=== PATIENT | male | born 1975 | race Caucasian/White ===

== ENCOUNTER 2021-07-13 19:42 | Emergency (ER) | payer SELFPAY ==
--- NOTE | 2021-07-13 19:45 | ED.SKABFB ---
HPI - Skin/Abscess/Foreign Bdy General Chief complaint: Skin/Abscess/Foreign Body Stated complaint: hives Source: patient and RN notes reviewed Mode of arrival: ambulatory Limitations: no limitations History of Present Illness HPI narrative: 46-year-old male presents with concern for hives, trouble breathing. Reports symptoms started 2 days ago after working his [employer]. He reports this is happened to him before after working in the [employer]. Reports it has not been this bad in the past. Reports he took Benadryl today with little relief. Reports the rash is itchy in nature on his arms, legs, torso and is hive-like. He reports the hives change in movement in nature. He reports yesterday he had swollen lips and felt difficulty swallowing. Reports that has improved. He denies nausea, vomiting, fever. MD complaint: rash Related Data Allergies Allergy/AdvReac Type Severity Reaction Status Date / Time No Known Allergies Allergy Verified 07/13/21 19:59 Review of Systems Review of Systems: CONSTITUTIONAL: Denies malaise, chills, sweats, or fever. EYES: Denies redness, or discharge. ENT: Denies rhinorrhea, congestion. Reports swollen lips, trouble swallowing yesterday CARDIOVASCULAR: Denies chest pain, palpitations, or edema. RESPIRATORY: Denies cough. Reports dyspnea. GASTROINTESTINAL: Denies abdominal pain, nausea, vomiting SKIN: Reports generalized hive-like rash MUSCULOSKELETAL: Denies joint pain or myalgia. NEUROLOGIC: Denies headache. All systems reviewed & are unremarkable except as noted in HPI and below PMFSH Comments At time of signature, agree with nursing past medical, surgical, social and family history. There is no relevant family history pertinent to the presenting complaint Exam Narrative: GENERAL: Nontoxic-appearing and in no acute distress. HEAD: Normocephalic, atraumatic. EYES: PERRLA, conjunctivae clear, and EOMI. ENT: Mucous membranes moist. Oropharynx without edema, erythema or lesions. NECK: Supple. No lymphadenopathy CHEST: Clear to auscultation. Tachypneic, otherwise no respiratory distress. HEART: Regular rate and rhythm. SKIN: Warm, dry. Urticarial rash noted to arms, legs, torso NEURO: Alert and oriented x3. PSYCH: Normal mood and affect Course Course Emergency Course: Patient is aware of, understands and agrees to seek care in the emergency department Patient agrees to proceed directly to the emergency department. Portions of this record may have been created with voice recognition software Level of Care: Express Care Visit Reevaluation(s) Reevaluation #1: Patient given Solu-Medrol, DuoNeb. Hives visibly improved, patient reports less itching. Denies dyspnea. Date: 07/13/21 Time: 20:35 Reevaluation #2: Discussed findings of EKG with patient, discussed need for transfer to emergency department. Patient is agreeable to go to the emergency department however he is not agreeable to transfer via EMS, encourage patient to use EMS transfer, patient still refuses. Date: 07/13/21 Time: 20:55 Vital Signs Vital signs: Vital Signs Temperature 97.2 F L 07/13/21 19:50 Pulse Rate 132 H 07/13/21 19:50 Respiratory Rate 32 H 07/13/21 19:50 Blood Pressure 150/61 H 07/13/21 19:50 Pulse Oximetry 97 07/13/21 19:50 Oxygen Delivery Room Air 07/13/21 19:50 Temperature 97.2 F L 07/13/21 19:59 Pulse Rate 125 H 07/13/21 20:16 Respiratory Rate 24 H 07/13/21 20:16 Blood Pressure 150/61 H 07/13/21 19:59 Pulse Oximetry 97 07/13/21 20:16 Oxygen Delivery Room Air 07/13/21 20:16 Reviewed. Transfer Transfered to: [facility]) Transportation: Other (Private vehicle, refused EMS transfer) Transfer rationale: Tachycardia, abnormal EKG Accepting physician: Folcort MDM - Skin/Abscess/Foreign Bdy MDM Narrative Medical decision making narrative: Patient's exam, EKG warrant further evaluation the emergency department ECG Data EKG #1: ECG completion d
[2021-07-13 19:50] VITALS: BP 150/61; PULSE 132; RESP 32; TEMP 36.2; O2SAT 97
[2021-07-13 19:59] VITALS: BP 150/61; PULSE 132; RESP 32; TEMP 36.2; O2SAT 97
[2021-07-13] MEDS: ALBUTEROL SULFATE NEB 2.5 MG/3 ML INH INHALATION (20:12)
[2021-07-13] MEDS: methylPREDNISolone SOD SUCC 125 MG VIAL IM (20:12)
[2021-07-13] MEDS: IPRATROPIUM BR 0.02% INH SOLN 0.5 MG/2.5 ML VIAL INHALATION (20:12)
[2021-07-13 20:16] VITALS: PULSE 125; RESP 24; O2SAT 97
--- NOTE | 2021-07-13 20:39 | ECG_ITS ---
Measurements Intervals [place] Rate: 129 P: 27 MI: 157 QRS: 28 QRSD: 98 T: -3 QT: 307 QTc: 451 Interpretive Statements SINUS TACHYCARDIA POOR R-WAVE PROGRESSION POSSIBLE OLD INFERIOR OK NO PRIOR TRACING Electronically Signed On 07-14-2021 8:56:43 CDT by Vida Lua M.D.
== END 2021-07-13 20:55 | disposition home or self-care (01) ==
PROVIDERS: Emergency Provider Nurse Practitioner
DX: L50.9 Urticaria, unspecified (principal); R94.31 Abnormal electrocardiogram [ECG] [EKG]
CPT/HCPCS: 93005; 96372; 99213; G0463; J2930